=== PATIENT | female | born 1950 | race Two or more races ===

== ENCOUNTER 2024-02-13 02:32 | Emergency (ER) | payer OTHER ==
[~2024-02-13] VITALS: Ht 157.5 cm; Wt 54.5 kg
[2024-02-13 02:41] VITALS: BP 98/66; PULSE 74; RESP 18; O2SAT 98
== END 2024-02-13 02:52 | disposition left against medical advice (07) ==
LOC: ER 02:32 → EDBD 02:32 → ER 02:52
DX: I47.10 Supraventricular tachycardia, unspecified (principal); R07.89 Other chest pain; R00.2 Palpitations; I10 Essential (primary) hypertension; J45.909 Unspecified asthma, uncomplicated